=== PATIENT | female | born 1990 ===

== ENCOUNTER → 2021-03-30 | Outpatient (CLI) | payer SELFPAY ==
[2021-03-30 15:41] LABS: Prolactin 14.1 ng/mL
[2021-03-30 15:45] LABS: Thyroid Stimulating Hormone 1.6 uIU/mL (0.360-4.800)
[2021-04-02 13:09] LABS: FREE TESTOSTERONE(DIRECT) 3.7 pg/mL (0.0-4.2)
== END | disposition home or self-care (01) ==
LOC: LAB SHORT 11:55
PROVIDERS: Advanced Practice Midwife
DX: Z01.419 Encounter for gynecological examination (general) (routine) without abnormal findings (principal); E28.2 Polycystic ovarian syndrome
CPT/HCPCS: 36415; 82670; 83002; 84146; 84443; G0123

== ENCOUNTER → 2023-09-24 | Outpatient (CLI) | payer OTHER ==
[2023-09-26 11:28] LABS: APTIMA MEDIA TYPE Urine; C. TRACHOMATIS BY TMA Negative (Negative); N. GONORRHOEAE BY TMA Negative (Negative); SPECIMEN SOURCE Urine
== END | disposition home or self-care (01) ==
LOC: LAB SHORT 13:41 → LAB 13:41
PROVIDERS: Advanced Practice Midwife
DX: Z11.3 Encounter for screening for infections with a predominantly sexual mode of transmission (principal)
CPT/HCPCS: 87491; 87591

== ENCOUNTER 2024-01-21 08:23 | Inpatient (IN) | payer OTHER ==
[2024-01-21] VITALS (12 sets, daily range): BP systolic 104–175; BP diastolic 59–76
[~2024-01-21] VITALS: Ht 152.4 cm; Wt 57.6 kg
[~2024-01-21 08:23] MED LIST: CeFAZolin Sodium 2,000 MG in NS 100 ML IV SCH; Citric Acid/Sodium Citrate 30 ML BTL PO SCH; Lactated Ringer's 1,000 ML IV SCH; Metoclopramide HCl 5MG / ML 2ML Vial IV SCH
[2024-01-21 08:43] LABS: BASOPHILS ABSOLUTE AUTO 0.02 K/mm3 (0.00-0.23); BASOPHILS PERCENT AUTO 0 % (0-2); EOSINOPHILS ABSOLUTE AUTO 0.26 K/mm3 (0.00-0.68); EOSINOPHILS PERCENT AUTO 3 % (0-6); Hematocrit 36.6 % (33.0-51.0); Hemoglobin 12.1 g/dL (11.5-16.0); IMMATURE GRAN ABSOLUTE AUTO 0.06 K/mm3 (0.00-0.10); IMMATURE GRAN PERCENT AUTO 1 % (0-1); LYMPHOCYTES ABSOLUTE AUTO 1.94 K/mm3 (0.84-5.20); LYMPHOCYTES PERCENT AUTO 20 % (21-46); MONOCYTES ABSOLUTE AUTO 0.66 K/mm3 (0.16-1.47); MONOCYTES PERCENT AUTO 7 % (4-13); Mean Corpuscular HGB Conc 33.1 g/dL (31.5-36.5); Mean Corpuscular Volume 91 fL (80-100); Mean Platelet Volume 10.1 fL (9.1-12.4); NEUTROPHILS ABSOLUTE AUTO 6.59 K/mm3 (1.96-9.15); NEUTROPHILS PERCENT AUTO 69 % (41-73); Platelet Count 208 K/mm3 (150-400); RDW Coefficient Variation 13.2 % (11.7-14.2); RDW Standard Deviation 43.5 fL (35.1-46.3); Red Blood Cell Count 4.03 M/mm3 (3.80-5.20); White Blood Cell Count 9.53 K/mm3 (4.00-11.30)
[2024-01-21] MEDS ORDERED: FentaNYL Citrate 50 MCG/ML 2 ML Injection ONE (10:24)
--- NOTE | 2024-01-21 10:59 | NUR ---
01/21/24 1058 Светлана Tian MALE DELIVERED AT 1042 VIA PRIMARY C/SECTION. BABY WENT TO NURSERY FOR CPAP.
[2024-01-21] MEDS ORDERED: Oxytocin 10 Unit / ML Vial ONE ×2 (11:01→11:19)
[2024-01-21] MEDS ORDERED: Ketorolac Tromethamine 30mg Vial ONE (11:01)
[2024-01-21] MEDS ORDERED: Ondansetron HCl 2 MG / ML 2ML Vial ONE (11:19)
[2024-01-21] MEDS ORDERED: Dexamethasone Sod Phos 10 MG/ML 1ML VIAL ONE (11:19)
[2024-01-21] MEDS ORDERED: OXYTOCIN/RINGER'S LACTATE 500 ML IV SCH ×2 (11:30→11:35)
[2024-01-21] MEDS ORDERED: DiphenhydrAMINE HCL 25 MG Cap PO PRN (11:35)
[2024-01-21] MEDS ORDERED: Rho(D) Immune Globulin 300 MCG / SYR IM ONE (11:35)
[2024-01-21] MEDS ORDERED: Promethazine HCl 25 MG Tab PO PRN (11:35)
[2024-01-21] MEDS ORDERED: Carboprost Tromethamine 250 MCG/ML 1ML Amp IM PRN (11:35)
[2024-01-21] MEDS ORDERED: Acetaminophen 500 MG Tab PO PRN (11:35)
[2024-01-21] MEDS ORDERED: Simethicone 80 MG Chew PO PRN (11:40)
[2024-01-21] MEDS ORDERED: Methylergonovine Maleate 0.2MG / ML 1ML Amp IM PRN (11:40)
[2024-01-21] MEDS ORDERED: Misoprostol 200 MCG Tab PR PRN (11:40)
[2024-01-21] MEDS ORDERED: Metoclopramide HCl 10 MG Tab PO PRN (11:40)
[2024-01-21] MEDS ORDERED: Magnesium Hydroxide Conc 10 ML UDC PO PRN (11:40)
[2024-01-21] MEDS ORDERED: Lactated Ringer's 1,000 ML IV SCH (11:40)
[2024-01-21] MEDS ORDERED: OxyCODONE HCL 5 MG TAB PO PRN (11:45)
[2024-01-21] MEDS ORDERED: Ondansetron HCl 2 MG / ML 2ML Vial IV PRN (11:45)
[2024-01-21] MEDS ORDERED: Lanolin Cream TOP PRN (11:45)
[2024-01-21] MEDS ORDERED: Ibuprofen 400 MG Tab PO PRN (11:50)
[2024-01-21] MEDS ORDERED: Ketorolac Tromethamine 30mg Vial IV SCH (12:00)
[2024-01-21] MEDS ORDERED: Docusate Sodium 100 MG Cap PO SCH (21:00)
[2024-01-22 01:38] VITALS: BP 108/71
[2024-01-22 05:39] VITALS: BP 122/79
[2024-01-22 06:35] LABS: BASOPHILS ABSOLUTE AUTO 0.02 K/mm3 (0.00-0.23); BASOPHILS PERCENT AUTO 0 % (0-2); EOSINOPHILS ABSOLUTE AUTO 0.07 K/mm3 (0.00-0.68); EOSINOPHILS PERCENT AUTO 0 % (0-6); Hematocrit 30.4 % (33.0-51.0); Hemoglobin 10.3 g/dL (11.5-16.0); IMMATURE GRAN ABSOLUTE AUTO 0.11 K/mm3 (0.00-0.10); IMMATURE GRAN PERCENT AUTO 1 % (0-1); LYMPHOCYTES PERCENT AUTO 11 % (21-46); MONOCYTES ABSOLUTE AUTO 1.57 K/mm3 (0.16-1.47); MONOCYTES PERCENT AUTO 8 % (4-13); Mean Corpuscular HGB 30.6 pg (26.0-34.0); Mean Corpuscular HGB Conc 33.9 g/dL (31.5-36.5); Mean Corpuscular Volume 90 fL (80-100); Mean Platelet Volume 10.3 fL (9.1-12.4); NEUTROPHILS ABSOLUTE AUTO 14.98 K/mm3 (1.96-9.15); NEUTROPHILS PERCENT AUTO 80 % (41-73); Platelet Count 183 K/mm3 (150-400); RDW Coefficient Variation 13.1 % (11.7-14.2); RDW Standard Deviation 42.5 fL (35.1-46.3); Red Blood Cell Count 3.37 M/mm3 (3.80-5.20); White Blood Cell Count 18.75 K/mm3 (4.00-11.30)
[2024-01-22 07:32] VITALS: BP 114/79
[2024-01-22] MEDS ORDERED: Prenatal Vit/FE Fumarate/FA 1 Tab PO SCH (09:00)
[2024-01-22 13:21] VITALS: BP 96/63
[2024-01-22 20:25] VITALS: BP 94/53
[2024-01-23 00:01] VITALS: BP 90/57
[2024-01-23 04:07] VITALS: BP 95/60
[2024-01-23 07:55] VITALS: BP 108/68
--- NOTE | 2024-01-23 10:49 | NUR ---
Printed d/c instructions reviewed by pt and . CNM did verbal teaching with both this am. Pt declines additional instruction from RN, verbalized understanding of instructions and follow up. Will prepare for d/c when returns with medications.
[2024-01-23 11:59] VITALS: BP 110/62
--- NOTE | 2024-01-23 12:20 | NUR ---
No acute changes t/o shift. Parents deny additional needs/concerns. Pt d/c'd home as nb being transported to [facility] NICU.
--- NOTE | 2024-01-24 12:19 | NUR ---
PPFU- PT AT [facility] W/ NB. PT STATES SHE IS PUMPING AND STARTING TO HAVE MILK COME IN, HAS HELP FROM [facility] LACATION DEPT, FURTHER LC OFFERED. PT STATES HER LAST BM WAS TODAY AND IS PASSING GAS. PT STATES VAGINAL BLEEDING IS DECREASING AND PINK IN COLOR. PT DENIES HEADACHE, BLURRED VISION, DIZZINESS, NUMBNESS OR TINGLING IN HANDS AND FEET. PT HAS SOME SWELLING IN HER FEET AND ANKLES. PT DENIES RED, TENDER HOT SPOTS BEHIND HER KNEES AND IN CALVES. PT HAS MD F/U SCHEDULED. PT IS TAKING PERCOCET, IBUPROFEN, AND PNV.
== END 2024-01-23 11:55 | disposition home or self-care (01) | DRG 788 ==
LOC: BC 08:23
PROVIDERS: Obstetrics & Gynecology; ADMIT Obstetrics & Gynecology
PROC: 10D00Z1 Extraction of Products of Conception, Low, Open Approach (ICD-10-PCS; principal; 2024-01-21 10:30)
DX: O44.03 Complete placenta previa NOS or without hemorrhage, third trimester (principal); Z3A.37 37 weeks gestation of pregnancy; Z37.0 Single live birth
CPT/HCPCS: 36415; 59025; 85025; A9270; J0690; J1100; J1885; J2405; J2590; J2765; J3010; J7120